=== PATIENT | female | born 1970 | race Caucasian/White ===

== ENCOUNTER 2016-08-11 15:05 | Emergency (ER) | payer OTHER ==
[~2016-08-11] VITALS: Ht 157.5 cm; Wt 100.0 kg
[~2016-08-11 15:05] MED LIST: ASPIR LOW81 MG PO; FLEXERIL 1010 MG/TAB PO; SYNTHROID0.075 MG PO; VIBRAMYCIN100 MG; ZESTRIL 20MG TA20 MG PO
[2016-08-11 17:36] VITALS: BP 178/103
[2016-08-16] MEDS ORDERED: HCTZ 25MG25 MG PO (14:13)
[2016-08-16] MEDS ORDERED: ACID REDUCER75 MG PO (14:13)
== END 2016-08-11 17:46 | disposition home or self-care (01) ==
LOC: ED 15:05
DX: I10 Essential (primary) hypertension (principal); F41.9 Anxiety disorder, unspecified

== ENCOUNTER → 2016-08-16 | Outpatient (CLI) | payer OTHER ==
[~2016-08-16] VITALS: Ht 157.5 cm; Wt 100.0 kg
[~2016-08-16] MED LIST changes: +ACID REDUCER75 MG PO; +HCTZ 25MG25 MG PO
[2016-08-16 14:10] VITALS: BP 162/90; BP 168/92
== END ==
LOC: AMSURD 13:56
DX: I10 Essential (primary) hypertension (principal); E03.9 Hypothyroidism, unspecified

== ENCOUNTER → 2017-08-08 | Outpatient (CLI) | payer OTHER ==
[2016-08-16 14:10] VITALS: BP 162/90
== END ==
LOC: LAB 16:58
PROVIDERS: Family Medicine
DX: E03.9 Hypothyroidism, unspecified (principal)

== ENCOUNTER → 2018-04-28 | Outpatient (CLI) | payer OTHER ==
[2016-08-16 14:10] VITALS: BP 162/90
== END ==
LOC: LAB 13:36
DX: R53.83 Other fatigue (principal)

== ENCOUNTER → 2018-04-30 | Outpatient (CLI) | payer OTHER ==
[2016-08-16 14:10] VITALS: BP 162/90
== END ==
LOC: MAMMO 14:27
DX: Z12.31 Encounter for screening mammogram for malignant neoplasm of breast (principal)

== ENCOUNTER → 2018-06-02 | Outpatient (CLI) | payer OTHER ==
[2016-08-16 14:10] VITALS: BP 162/90
== END ==
LOC: RAD 07:33
DX: N63.12 Unspecified lump in the right breast, upper inner quadrant (principal)

== ENCOUNTER → 2018-06-09 | Outpatient (CLI) | payer OTHER ==
[2016-08-16 14:10] VITALS: BP 162/90
== END ==
LOC: RAD 07:37
DX: N63.10 Unspecified lump in the right breast, unspecified quadrant (principal)
CPT/HCPCS: 15989; 15990; A4648

== ENCOUNTER → 2019-04-22 | Outpatient (CLI) | payer OTHER ==
[2016-08-16 14:10] VITALS: BP 162/90
[2019-04-22 10:44] LABS: BASO # 0.1 (0.02-0.10); EOS # 0.1 (0.04-0.40); EOS % 1.3 % (1.0-5.0); HEMATOCRIT 42.5 % (37.0-47.0); HEMOGLOBIN 14.2 g/dL (12.5-16.0); LYMPH# 3.6 (1.50-4.00); MEAN CELL VOLUME 89 fl (78-100); MEAN CORPUSCULAR HEMOGLOBIN 30 pg (27-31); MEAN CORPUSCULAR HGB CONC 33 g/dL (33-37); MEAN PLATELET VOLUME 10.4 fl (7.4-10.4); MONO # 1.1 (0.20-0.80); NEU # 5.5 (1.40-6.50); PLATELET COUNT 278 K/mm3 (130-400); RED BLOOD COUNT 4.76 M/mm3 (4.10-5.30); RED CELL DISTRIBUTION WIDTH 13.9 % (11.5-14.5); WHITE BLOOD COUNT 10.5 K/mm3 (4.8-10.8)
[2019-04-22 10:54] LABS: ALBUMIN 4.2 g/dL (3.5-5.0)
[2019-04-22 10:55] LABS: CALCIUM 9.1 mg/dL (8.3-10.5)
[2019-04-22 10:57] LABS: TOTAL PROTEIN 7.3 g/dL (6.4-8.3)
[2019-04-22 10:58] LABS: TOTAL BILIRUBIN 0.3 mg/dL (0.2-1.2)
== END ==
LOC: RAD 10:35
PROVIDERS: Physician Assistant
DX: J01.90 Acute sinusitis, unspecified (principal); R06.2 Wheezing

== ENCOUNTER → 2019-04-24 | Outpatient (CLI) | payer OTHER ==
[2016-08-16 14:10] VITALS: BP 162/90
[2019-04-24 08:25] LABS: POTASSIUM 3.6 mmol/L (3.5-5.1)
[2019-04-24 08:26] LABS: CALCIUM 8.7 mg/dL (8.3-10.5)
== END ==
LOC: LAB 08:08
PROVIDERS: Physician Assistant
DX: E03.9 Hypothyroidism, unspecified (principal); E87.6 Hypokalemia

== ENCOUNTER → 2019-04-30 | Outpatient (CLI) | payer OTHER ==
[2016-08-16 14:10] VITALS: BP 162/90
== END ==
LOC: VAS 15:12 → RAD 15:45
DX: I51.7 Cardiomegaly (principal); I10 Essential (primary) hypertension

== ENCOUNTER → 2020-03-30 | Outpatient (CLI) | payer OTHER ==
[2016-08-16 14:10] VITALS: BP 162/90
[2020-03-30 13:02] LABS: POTASSIUM 3.4 mmol/L (3.5-5.1)
[2020-03-30 13:03] LABS: CALCIUM 8.7 mg/dL (8.3-10.5)
== END ==
LOC: LAB 12:33
PROVIDERS: Family Medicine
DX: E87.6 Hypokalemia (principal); I10 Essential (primary) hypertension; E03.9 Hypothyroidism, unspecified

== ENCOUNTER → 2020-04-11 | Outpatient (CLI) | payer OTHER ==
[2016-08-16 14:10] VITALS: BP 162/90
[2020-04-11 15:17] LABS: EOS # 0.2 (0.04-0.40); EOS % 2.6 % (1.0-5.0); HEMATOCRIT 41.9 % (37.0-47.0); HEMOGLOBIN 13.8 g/dL (12.5-16.0); LYMPH# 2.9 (1.50-4.00); MEAN CELL VOLUME 91 fl (78-100); MEAN CORPUSCULAR HEMOGLOBIN 30 pg (27-31); MEAN CORPUSCULAR HGB CONC 33 g/dL (33-37); MEAN PLATELET VOLUME 10.1 fl (7.4-10.4); MONO # 0.6 (0.20-0.80); NEU # 4.5 (1.40-6.50); PLATELET COUNT 273 K/mm3 (130-400); RED BLOOD COUNT 4.63 M/mm3 (4.10-5.30); RED CELL DISTRIBUTION WIDTH 14.8 % (11.5-14.5); WHITE BLOOD COUNT 8.3 K/mm3 (4.8-10.8)
[2020-04-11 15:24] LABS: ALBUMIN 4.1 g/dL (3.5-5.0)
[2020-04-11 15:25] LABS: POTASSIUM 3.6 mmol/L (3.5-5.1)
[2020-04-11 15:26] LABS: CALCIUM 9.3 mg/dL (8.3-10.5)
[2020-04-11 15:27] LABS: TOTAL PROTEIN 7.6 g/dL (6.4-8.3)
[2020-04-11 15:29] LABS: TOTAL BILIRUBIN 0.3 mg/dL (0.2-1.2)
[2020-04-11 15:33] LABS: MAGNESIUM 1.94 mg/dL (1.60-2.60)
== END ==
LOC: LAB 14:59
PROVIDERS: Family Medicine
DX: R05 Cough (principal); R53.83 Other fatigue

== ENCOUNTER → 2020-10-24 | Outpatient (CLI) | payer OTHER | LOC: RAD 11:55 | DX: M79.672 Pain in left foot (principal) ==

== ENCOUNTER 2021-04-13 10:00 | Outpatient (RCR) | payer OTHER | END 2021-04-17 | disposition home or self-care (01) | LOC: PT | DX: Z98.890 Other specified postprocedural states (principal) ==

== ENCOUNTER 2021-04-21 08:30 | Outpatient (RCR) | payer OTHER | END 2021-05-15 | disposition home or self-care (01) | LOC: PT | DX: M25.562 Pain in left knee (principal) ==

== ENCOUNTER 2021-07-29 23:46 | Emergency (ER) | payer OTHER ==
[~2021-07-29] VITALS: Ht 157.5 cm; Wt 109.1 kg
[2021-07-30] MEDS ORDERED: BREO ELLIPTA1 POW IH (01:52)
[2021-07-30] MEDS ORDERED: WOMEN'S DAILY F1 TAB PO (01:52)
[2021-07-30] MEDS ORDERED: PROTONIX20 M1 PO (01:52)
[2021-07-30] MEDS ORDERED: VALTREX1 GM PO (01:53)
[2021-07-30] MEDS ORDERED: IPRATROPIUM BROM3 M1 IH (01:53)
[2021-07-30] MEDS ORDERED: [UNRECOGNIZED DRUG - OTHER] TP (01:56)
[2021-07-30] MEDS ORDERED: AMLODIPINE BESYL5 MG PO (03:07)
[2021-07-30 03:25] VITALS: BP 149/97
== END 2021-07-30 03:25 | disposition home or self-care (01) ==
LOC: ED 23:46
DX: I10 Essential (primary) hypertension (principal); E66.01 Morbid (severe) obesity due to excess calories; Z68.41 Body mass index [BMI] 40.0-44.9, adult; Z88.8 Allergy status to other drugs, medicaments and biological substances; Z28.311 Partially vaccinated for COVID-19
CPT/HCPCS: J0360

== ENCOUNTER 2021-08-07 15:03 | Outpatient (RCR) | payer OTHER ==
[~2021-08-07 15:03] MED LIST changes: +AMLODIPINE BESYL5 MG PO; +BREO ELLIPTA1 POW IH; +IPRATROPIUM BROM3 M1 IH; +PROTONIX20 M1 PO; +VALTREX1 GM PO; +WOMEN'S DAILY F1 TAB PO; +[UNRECOGNIZED DRUG - OTHER] TP
== END 2021-08-15 | disposition home or self-care (01) ==
LOC: PT
DX: M25.562 Pain in left knee (principal)

== ENCOUNTER → 2021-08-22 | Outpatient (CLI) | payer OTHER ==
[2021-08-22 07:40] LABS: POTASSIUM 3.6 mmol/L (3.5-5.1)
[2021-08-22 07:41] LABS: CALCIUM 9.1 mg/dL (8.3-10.5)
[2021-08-23 11:07] LABS: ALBUMIN 4.2 g/dL (3.5-5.0)
[2021-08-23 11:10] LABS: TOTAL PROTEIN 7.2 g/dL (6.4-8.3)
[2021-08-23 11:12] LABS: TOTAL BILIRUBIN 0.3 mg/dL (0.2-1.2)
== END ==
LOC: LAB 07:04
PROVIDERS: Family Medicine
DX: E87.6 Hypokalemia (principal)

== ENCOUNTER → 2022-06-21 | Outpatient (CLI) | payer OTHER | LOC: RAD 15:15 | DX: J45.21 Mild intermittent asthma with (acute) exacerbation (principal) ==

== ENCOUNTER → 2022-12-05 | Outpatient (CLI) | payer OTHER ==
[2022-12-05 12:43] LABS: POTASSIUM 3.5 mmol/L (3.5-5.1)
[2022-12-05 12:45] LABS: CALCIUM 9.2 mg/dL (8.3-10.5)
== END ==
LOC: LAB 12:23
PROVIDERS: Nurse Practitioner Family
DX: E87.6 Hypokalemia (principal)

== ENCOUNTER → 2022-12-20 | Outpatient (CLI) | payer OTHER | LOC: LAB 07:48 | DX: F90.9 Attention-deficit hyperactivity disorder, unspecified type (principal); E87.6 Hypokalemia ==

== ENCOUNTER → 2022-12-20 | Outpatient (CLI) | payer OTHER ==
[2022-12-21 21:50] LABS: ADRENOCORTICOTROPIC HORMONE 12 pg/mL (5-27)
== END ==
LOC: LAB 08:54
PROVIDERS: Nurse Practitioner
DX: E87.6 Hypokalemia (principal); L25.9 Unspecified contact dermatitis, unspecified cause; E03.9 Hypothyroidism, unspecified

== ENCOUNTER → 2023-10-15 | Outpatient (CLI) | payer OTHER ==
[2023-10-15 15:03] LABS: BASO # 0.03 K/mm3 (0.02-0.10); HEMATOCRIT 46.3 % (37.0-47.0); HEMOGLOBIN 15.4 g/dL (12.5-16.0); LYMPH# 1.33 K/mm3 (1.50-4.00); MEAN CELL VOLUME 90 fl (78-100); MEAN CORPUSCULAR HEMOGLOBIN 30 pg (27-31); MEAN CORPUSCULAR HGB CONC 33 g/dL (33-37); MEAN PLATELET VOLUME 10.7 fl (7.4-10.4); MONO # 0.54 K/mm3 (0.20-0.80); NEU # 8.01 K/mm3 (1.40-6.50); PLATELET COUNT 321 K/mm3 (130-400); RED BLOOD COUNT 5.14 M/mm3 (4.10-5.30); RED CELL DISTRIBUTION WIDTH 12.8 % (11.5-14.5)
== END ==
LOC: LAB 14:34
DX: R53.83 Other fatigue (principal)

== ENCOUNTER → 2023-10-31 | Outpatient (CLI) | payer OTHER ==
[2023-10-31 18:50] LABS: BASO # 0.04 K/mm3 (0.02-0.10); EOS # 0.16 K/mm3 (0.04-0.40); EOS % 1.9 % (1.0-5.0); HEMATOCRIT 45.3 % (37.0-47.0); HEMOGLOBIN 15.1 g/dL (12.5-16.0); LYMPH# 2.56 K/mm3 (1.50-4.00); MEAN CELL VOLUME 91 fl (78-100); MEAN CORPUSCULAR HEMOGLOBIN 30 pg (27-31); MEAN CORPUSCULAR HGB CONC 33 g/dL (33-37); MEAN PLATELET VOLUME 10.3 fl (7.4-10.4); MONO # 0.72 K/mm3 (0.20-0.80); NEU # 4.83 K/mm3 (1.40-6.50); PLATELET COUNT 282 K/mm3 (130-400); RED BLOOD COUNT 4.97 M/mm3 (4.10-5.30); RED CELL DISTRIBUTION WIDTH 13.5 % (11.5-14.5); WHITE BLOOD COUNT 8.3 K/mm3 (4.8-10.8)
[2023-10-31 18:54] LABS: ALBUMIN 4.2 g/dL (3.5-5.0)
[2023-10-31 18:56] LABS: CALCIUM 9.5 mg/dL (8.3-10.5)
[2023-10-31 18:57] LABS: TOTAL PROTEIN 7.2 g/dL (6.4-8.3)
[2023-10-31 18:59] LABS: TOTAL BILIRUBIN 0.6 mg/dL (0.2-1.2)
== END ==
LOC: LAB 18:23
PROVIDERS: Nurse Practitioner
DX: Z00.00 Encounter for general adult medical examination without abnormal findings (principal); E03.9 Hypothyroidism, unspecified

== ENCOUNTER → 2024-04-13 | Outpatient (REF) | payer OTHER | LOC: LAB 10:28 | DX: J06.9 Acute upper respiratory infection, unspecified (principal); Z20.822 Contact with and (suspected) exposure to COVID-19 ==

== ENCOUNTER → 2024-05-15 | Outpatient (CLI) | payer OTHER | LOC: RAD 11:22 | DX: R06.2 Wheezing (principal) ==